=== PATIENT | female | born 1995 | race Caucasian/White ===

== ENCOUNTER 2020-09-11 06:57 | Outpatient (CLI) | payer BC, SELFPAY ==
--- NOTE | 2020-09-11 07:15 | MR_ITS ---
WS: [id number] MRI RIGHT KNEE NONCONTRAST TECHNIQUE: Axial PD, coronal PD fat sat, coronal PD, sagittal PD, and sagittal PD fat-sat images obta ined. CLINICAL INFORMATION: M25.561 - Pain in right knee COMPARISON: None. FINDINGS: Distal quadriceps and patella tendons are intact. Hypertrophic patella. High-grade ACL tear. A few re sidual ACL fibers anteriorly. Normal PCL. Evidence of prior lateral patellar dislocation with chondra l injury involving the medial patella facet. Edema involving the lateral femoral condyle with contusi on. Medial and lateral patellar retinaculum appear intact. Grade one injury involving the proximal MC L. LCL is intact. Horizontal tear involving the posterior horn lateral meniscus. Medial meniscus appears intact. MR/MR knee RT wo con* [id number] IMPRESSION: 1. High-grade ACL tear. Normal PCL. 2. Evidence of prior lateral patellar dislocation with contusion of along the lateral femoral condyle and chondral injury involving the medial patella facet. Recommend correlation for patellar instability. 3. Medial and lateral patellar retinacula appear intact. 4. Horizontal tear involving the posterior horn lateral meniscus. Medial menis cus appears intact. 5. Grade one injury involving the proximal MCL. LCL is intact.
== END 2020-09-11 06:58 | disposition home or self-care (01) ==
LOC: RADSHAW 07:01
PROVIDERS: PCP Family Medicine; Visit Provider Orthopaedic Surgery
DX: S83.511A Sprain of anterior cruciate ligament of right knee, initial encounter (principal); S83.281A Other tear of lateral meniscus, current injury, right knee, initial encounter; X58.XXXA Exposure to other specified factors, initial encounter
CPT/HCPCS: 73721

== ENCOUNTER → 2020-10-18 12:02 | Outpatient (BNVA) | payer BC, SELFPAY | PROVIDERS: PCP Family Medicine; Visit Provider Orthopaedic Surgery | DX: Z20.822 Contact with and (suspected) exposure to COVID-19 (principal) | CPT/HCPCS: 87635 ==

== ENCOUNTER → 2020-10-27 15:51 | Outpatient (BNVA) | payer BC, SELFPAY | PROVIDERS: PCP Family Medicine; Visit Provider Orthopaedic Surgery | DX: Z01.812 Encounter for preprocedural laboratory examination (principal); Z20.822 Contact with and (suspected) exposure to COVID-19 | CPT/HCPCS: 87635 ==

== ENCOUNTER 2020-11-02 09:07 | Day surgery (SDC) | payer BC, SELFPAY ==
[2020-11-01 15:59] VITALS: BMI 39.9
[2020-11-02] VITALS (11 sets, daily range): BP systolic 120–136; BP diastolic 76–99; PULSE 80–130; RESP 12–20; TEMP 36.2–36.5; O2SAT 94–99
[2020-11-02 09:34] LABS: OR HCG Qualitative Urine Negative (Negative)
--- NOTE | 2020-11-02 09:54 | ANES.PREANE2 ---
Pre-Anesthetic Assessment Pre-Anesthetic Assessment: Height/Weight: Height 1.75 m Weight 122.47 kg Temp Pulse Resp BP Pulse Ox 97.1 F L 80 18 134/94 96 11/02/20 09:25 11/02/20 09:25 11/02/20 09:25 11/02/20 09:25 11/02/20 09:25 Preop Diagnosis: Anterior cruciate ligament tear, Lateral patellar dislocation, lateral meni Proposed Procedure: Operation Date: 11/02/20 11:05 Proposed Procedures p ACL Repair and lateral meniscal repair 52710, 16130, 79849 S83.004A, S83.519A, S83.281A(Right) - Vitaliy Villalobos MD s medial Patellofemoral Ligament repair(Right) - Vitaliy Villalobos MD Familial anesthetic complications: None Was Beta Hilda taken within 24 hours: Yes Was Clonidine taken within 24 hours: N/A Last intake: Intake Last Liquid Date 11/01/20 Last Liquid Time 22:00 Last Solid Date 11/01/20 Last Solid Time 22:00 Social: Social History: No alcohol and No tobacco Exam: Pre-Anes Outpt Exam: alert, oriented x 3, clear to auscultation bilaterally and regular rate & rhythm Airway: Cervical ROM: WNL MP: 3 Dentition: Full Pulmonary: Pulmonary: Asthma (very mild, 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
[2020-11-02] MEDS: sodium chloride 0.9% 1,000 ML 30 ML IV (10:05)
[2020-11-02] MEDS: oxyCODONE 20 mg ER (12 HR) Tablet PO (10:17)
--- NOTE | 2020-11-02 10:53 | W.PM.OPSUD ---
Surgery/Procedure H&P Update DATE OF PROCEDURE: November 02, 2020 DATE H&P PERFORMED: 10/02/20 H&P UPDATE INFORMATION: I have reviewed H&P completed within last 30 days, I have examined patient prior to procedure and No changes to prior documentation PREOP DIAGNOSIS: Anterior cruciate ligament tear, Lateral patellar dislocation, lateral meni PLANNED PROCEDURE: Operation Date: 11/02/20 11:05 Proposed Procedures p ACL Repair and lateral meniscal repair 38280, 03473, 89371 S83.004A, S83.519A, S83.281A(Right) - Vitaliy Villalobos MD s medial Patellofemoral Ligament repair(Right) - Vitaliy Villalobos MD
[2020-11-02] MEDS: morphine 4 mg/mL SDV 1 mL 8 MG IM (11:40)
--- NOTE | 2020-11-02 13:58 | PM.OP ---
Operative Report Date of procedure: November 02, 2020 Pre-op Diagnosis: Anterior cruciate ligament tear, Lateral patellar dislocation, lateral meni Post-op Diagnosis: Anterior cruciate ligament reconstruction, lateral meniscal repair right knee Post-op Findings: As above Procedure Done: Right anterior cruciate ligament reconstruction Right lateral meniscal repair Pathology: none sent Surgeon: Vitaliy Villalobos Anesthesia: General Estimated blood loss (mL): 20 Tourniquet time (min): 82 Findings: The patient had an absent anterior cruciate she had a longitudinal near complete tear in the posterior third of her lateral meniscus centrally over a distance of approximately 2 cm. She had no evidence of patella patellar maltracking. She had no increased lateral translation of the patella throughout range of motion compared to the contralateral knee. Condition: stable Disposition: PACU Brief History: Kita is a 25-year-old female with a history of instability in the right knee. She describes a history of patellar dislocation. An MRI revealed complete disruption of her anterior cruciate ligament and a lateral meniscal tear. With her history of recurrent instability and pain surgical reconstruction was chosen. Our our plan was to address known pathology with anterior cruciate ligament and lateral meniscus. It was suspected that her anterior cruciate ligament with a cause of recurrent instability but if patellar laxity was noted at the time of surgery patellofemoral ligament reconstruction could be added. Procedure: The patient was taken to the operating room and given a general anesthesia. She is prepped and draped in the supine position with a tourniquet on the right thigh. The knee was infiltrated with 30 cc of 0.5% Marcaine and 4 mg of morphine. A timeout was performed. The knee was initially entered through the standard inferior medial and inferior lateral portals with the diagnostic portion of arthroscopy performed. The medial compartment is inspected and found to be free of chondromalacia or meniscal tearing. The patellofemoral compartment was inspected as well found to be healthy is free of chondromalacia. Attention was focused on the intercondylar notch. The synovium was removed revealing no remaining anterior cruciate ligament tissue. The leg was placed in a [id number] position revealing tearing of the lateral meniscus. A small longitudinal fragment was seen adherent to the anterior lateral meniscus which was removed with an incisor shaver and [employer] Werew[employer] probe. Of near complete longitudinal posterior split was identified in the posterior third of the meniscus centrally. The longitudinal tear was debrided with incisor shaver lightly to improve vascularity. The scope was then moved medially and a [employer] NovoStitch suture passer passed to the lateral portal placing a haybale stitch just adjacent to the meniscal root. A second [employer] NovoStitch was passed approximately 1 cm laterally approximating the root tear. Attention was then paid to the anterior cruciate ligament. Utilizing an incisor shaver small amount of lateral wall was resected allowing visualization of the posterior lateral intercondylar notch. A 3 cm long incision was then made over the medial tibial plateau and dissection carried down with blunt scissors identifying a well-defined semi-tendinosis and gracilis graft. The 2 grafts were freed off their insertion on the tibia and fixed with a [employer] Ultrabraid suture. Using the closed ended tendon stripper to grafts were harvested. On the back table with her freed of muscle and the free ends fixed with the Ultrabraid suture. They were pretensioned on the back table. They were measured and fit snugly through a 10 mm tunnel with a triple construct of the semitendinosis and doubled the chrysalis. Using the anatomic femoral footprint guide, a guidepin was driven up from the 10:30 position exiting superior and lateral femur. Tunnel depth was measured at 47 mm. The Endobutton reamer was passed over the guide pin confirming the length of tunnel. A 10 mm reamer was then passed to a depth of 37 mm. The [employer] ProTrac guide was used to pass a guidepin from the medial tibia exiting the tibial footprint. . A 11 mm reamer was passed over the guidepin exiting the tibial footprint of the anterior cruciate ligament. On the back table, the 2 grafts were doubled through a 20 mm closed loop Endobutton and the semitendinosis smaller and tied back to the loop creating a tripled construct of the larger graft.. This allowed 27 mm of tendon to be buried in the femur and allowed more than sufficient room to flip the Endobutton. The grafts were shuttled from the tibia through the femur using an ultra braid suture. The Endobutton was felt to flip on the lateral cortex and secured with tension on the sutures to the tibia. A [employer] Biosure Sync sleeve was placed and was secured with a 11 x 25 mm Biosure PK screw. The knee and medial wounds were irrigated with saline. The sartorius fascia was closed with 2-0 Vicryl. Deep tissues were closed with 2-0 Vicryl. The tibial wound was closed with a running 3-0 Prolene. Portals were closed with 3-0 Prolene. Steri-Strips were applied over the tibial incision. Sterile dressings were applied. The patient was placed in a hinged knee brace locked in full extension. They were taken to recovery room in stable condition.
--- NOTE | 2020-11-02 14:03 | ANE.PACU2 ---
Inpatient post-anesthesia follow up: Airway intact: Yes Vital signs: Temperature 97.1 F Pulse Rate 80 Respiratory Rate 18 Blood Pressure 134/94 Pulse Oximetry 96 Oxygen Delivery Me thod Room Air Oxygen Flow Rate Fraction of Inspir ed Oxygen Hydration adequate: Yes Nausea and vomiting: No Pain level: 1 Mental status: Baseline
--- NOTE | 2020-11-06 07:01 | W.PM.OPSFHP ---
Same Day Surgery H&P Indication for Procedure/HPI DATE OF PROCEDURE: November 06, 2020 CHIEF COMPLAINT/INDICATIONFOR SURGICAL PROCEDURE: Anterior cruciate ligament tear, lateral meniscal tear right knee. History of patellar dislocation and equivical instability exam. Here for anterior cruciate ligament reconstruction, medial meniscectomy versus repair, evaluation under anesthesia and possible medial patellofemoral ligament reconstruction PREOP DIAGNOSIS: Anterior cruciate ligament tear, Lateral patellar dislocation, lateral meni PLANNED PROCEDRUE: Operation Date: 11/02/20 11:05 Proposed Procedures p ACL Repair and lateral meniscal repair 90346, 58970, 08931 S83.004A, S83.519A, S83.281A(Right) - Vitaliy Villalobos MD s medial Patellofemoral Ligament repair(Right) - Vitaliy Villalobos MD Medications/Allergies* Home Medications Medication Instructions Recorded Confirmed Type buspirone 10 mg tablet 10 mg PO BID 08/23/20 11/02/20 History famotidine 40 mg tablet 40 mg PO DAILY 08/23/20 11/02/20 History metoprolol succinate 100 mg 100 mg PO DAILY 08/23/20 11/02/20 History tablet,extended release 24 hr multivitamin 1 tab PO DAILY 08/23/20 11/02/20 History pantoprazole 40 mg tablet,delayed 40 mg PO DAILY 08/23/20 11/02/20 History release venlafaxine 150 mg 150 mg PO DAILY 08/23/20 11/02/20 History capsule,extended release 24 hr Depo-Provera See Rx Instructions .ROUTE .COMPLEX 11/01/20 11/01/20 History Allergies/Adverse Reactions Allergy/AdvReac Type Severity Reaction Status Date / Time acetaminophen [From Tylenol] Allergy Severe ALGY-Anaphy Verified 10/02/20 13:13 laxis naproxen Allergy Severe ALGY-Anaphy Verified 10/02/20 13:13 laxis Pertinent History/Comorbid Conditions* Social History Smoking and tobacco status: never smoked Alcohol intake: never Pertinent Exam Findings alert, oriented x 3, clear to auscultation bilaterally, regular rate & rhythm and operative site marked Recommendations Surgery/Procedure today Coding Level of Care Code 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
== END 2020-11-02 15:20 | disposition home or self-care (01) ==
PROVIDERS: Anesthesiology; PCP Family Medicine; Visit Provider Orthopaedic Surgery
PROC: (CPT 27407; principal; 2020-11-02 11:05)
PROC: (CPT 27427; 2020-11-02 11:05)
DX: S83.511A Sprain of anterior cruciate ligament of right knee, initial encounter (principal); S83.014A Lateral dislocation of right patella, initial encounter; X58.XXXA Exposure to other specified factors, initial encounter; I10 Essential (primary) hypertension; K21.9 Gastro-esophageal reflux disease without esophagitis; E66.01 Morbid (severe) obesity due to excess calories; Z68.39 Body mass index [BMI] 39.0-39.9, adult; J45.909 Unspecified asthma, uncomplicated
CPT/HCPCS: 29881; 29888; 84703; C1713; J0330; J0690; J1100; J1580; J2270; J2405; J2704; J3010; J3490; J7030; L1832

== ENCOUNTER 2020-11-07 06:00 | Outpatient (RCR) | payer BC, SELFPAY | END 2020-11-08 23:59 | disposition home or self-care (01) | LOC: SPT 06:00 | PROVIDERS: PCP Family Medicine; Referring Provider Orthopaedic Surgery; Visit Provider Orthopaedic Surgery | DX: Z47.89 Encounter for other orthopedic aftercare (principal) | CPT/HCPCS: 97161 ==

== ENCOUNTER 2020-11-09 06:00 | Outpatient (RCR) | payer BC, SELFPAY | END 2020-12-09 23:59 | disposition home or self-care (01) | LOC: SPT 06:00 | PROVIDERS: PCP Family Medicine; Referring Provider Orthopaedic Surgery; Visit Provider Orthopaedic Surgery | DX: M25.561 Pain in right knee (principal); R26.89 Other abnormalities of gait and mobility; M25.661 Stiffness of right knee, not elsewhere classified | CPT/HCPCS: 97110 ==

== ENCOUNTER 2020-12-10 06:00 | Outpatient (RCR) | payer BC, SELFPAY | END 2021-01-09 23:59 | disposition home or self-care (01) | LOC: SPT 06:00 | PROVIDERS: PCP Family Medicine; Referring Provider Orthopaedic Surgery; Visit Provider Orthopaedic Surgery | DX: Z47.89 Encounter for other orthopedic aftercare (principal) | CPT/HCPCS: 97110 ==

== ENCOUNTER 2021-08-21 11:50 | Outpatient (CLI) | payer OTHER, SELFPAY ==
--- NOTE | 2021-08-21 12:15 | US_ITS ---
WS: [id number] RIGHT UPPER QUADRANT ULTRASOUND HISTORY: right upper quadrant pain and nausea COMPARISON: None available. Liver: 19.2 cm in length. Liver is moderately enlarged. Coarsened echotexture low-attenuation from he patic steatosis. No mass or bile duct dilatation. Portal Vein: Normal hepatopetal flow with monophasic waveform. Gallbladder: Normally distended gallbladder with no stones or wall thickening. CBD: 0.5 cm Pancreas: Normal size and echogenicity. Right kidney: 12.2 cm in length. Normal size and echogenicity. No hydronephrosis or mass. Aorta and IVC: Unremarkable abdominal aorta and IVC. No ascites. US/US gall bladder [id number] IMPRESSION: 1. Normal gallbladder. 2. Moderate hepatomegaly and hepatic steatosis.
== END 2021-08-21 11:51 | disposition home or self-care (01) ==
PROVIDERS: Visit Provider Family Medicine
DX: R10.11 Right upper quadrant pain (principal); R11.0 Nausea; R16.0 Hepatomegaly, not elsewhere classified; K76.0 Fatty (change of) liver, not elsewhere classified
CPT/HCPCS: 76705

== ENCOUNTER → 2022-06-12 14:39 | Outpatient (BNVA) | payer OTHER, SELFPAY | PROVIDERS: PCP Family Medicine; Visit Provider Nurse Practitioner Family | DX: M25.561 Pain in right knee (principal) | CPT/HCPCS: 73562 ==

== ENCOUNTER → 2022-06-13 14:30 | Outpatient (BNVA) | payer OTHER, SELFPAY | PROVIDERS: PCP Family Medicine; Visit Provider Obstetrics & Gynecology | DX: E66.9 Obesity, unspecified (principal) | CPT/HCPCS: 83036; 83525; 84443 ==

== ENCOUNTER → 2022-07-01 12:41 | Outpatient (BNVA) | payer OTHER, SELFPAY | PROVIDERS: PCP Family Medicine; Visit Provider Obstetrics & Gynecology | DX: N93.9 Abnormal uterine and vaginal bleeding, unspecified (principal) | CPT/HCPCS: 76830 ==

== ENCOUNTER 2022-09-17 05:54 | Day surgery (SDC) | payer OTHER, SELFPAY ==
[2022-09-16 15:30] VITALS: BMI 36.1
[2022-09-17] VITALS (12 sets, daily range): BP systolic 108–146; BP diastolic 82–99; PULSE 79–100; RESP 11–18; TEMP 36.3–36.9; O2SAT 92–99
[2022-09-17] MEDS: phenazopyridine 100 mg Tablet 200 MG PO (06:30)
[2022-09-17] MEDS: gabapentin 300 mg Capsule PO (06:30)
[2022-09-17] MEDS: scopolamine 1.5 Patch 1 PATCH TRANSDERMA (06:30)
[2022-09-17] MEDS: sodium chloride 0.9% 1,000 ML 30 ML IV (06:35)
[2022-09-17] MEDS: acetaminophen 1,000 MG/100 ML PIGGYBACK 400 MG IV (06:35)
[2022-09-17 06:46] LABS: Glucose Point of Care 93 mg/dL (70-110)
[2022-09-17 06:47] LABS: OR HCG Qualitative Urine Negative (Negative)
[2022-09-17] MEDS: ceFAZolin 2,000 MG in sodium chloride 0.9% (plus) 50 ML 100 MG IV (07:03)
--- NOTE | 2022-09-17 07:06 | W.PM.OPSUD ---
Surgery/Procedure H&P Update DATE OF PROCEDURE: September 17, 2022 DATE H&P PERFORMED: 09/12/22 H&P UPDATE INFORMATION: I have reviewed H&P completed within last 30 days, I have examined patient prior to procedure and No changes to prior documentation PREOP DIAGNOSIS: laparoscopic bilateral salpingectomy PLANNED PROCEDURE: Operation Date: 09/17/22 07:00 Proposed Procedures p Laparoscopic bilateral salpingectomy 74099,Z30.2(Bilateral) - Yary Gordon MD Related Problem List Diagnoses (1) Dysfunctional uterine bleeding:
--- NOTE | 2022-09-17 07:40 | ANES.PREANE2 ---
Pre-Anesthetic Assessment Height/Weight: Height 1.75 m Weight 111.13 kg Temp Pulse Resp BP Pulse Ox O2 Del Method 97.6 F 89 18 124/87 99 Room Air 09/17/22 06:21 09/17/22 06:21 09/17/22 06:21 09/17/22 06:21 09/17/22 06:21 09/17/22 06:21 Preop Diagnosis: laparoscopic bilateral salpingectomy Operation Date: 09/17/22 07:00 Proposed Procedures p Laparoscopic bilateral salpingectomy 87150,Z30.2(Bilateral) - Yary Gordon MD Familial anesthetic complications: none Was Beta Hilda taken within 24 hours: Yes Was Clonidine taken within 24 hours: N/A Last intake: Intake Last Liquid Date 09/16/22 Last Liquid Time 23:45 Last Solid Date 09/16/22 Last Solid Time 21:00 Social No alcohol and No tobacco Exam alert, oriented x 3, clear to auscultation bilaterally and regular rate & rhythm Airway Submandibular: within normal limits Cervical ROM: within normal limits Mallampati: Class II Dentition: full GI Gastroesophageal Reflux Disease Metabolic Morbid Obesity Neuropsych Anxiety and Depression Anesthetic Plan ASA status: 3 Anesthesia: General Medications/Allergies Home Medications Medication Instructions Recorded Confirmed Last Taken Type multivitamin 1 tab PO DAILY 08/23/20 09/17/22 09/15/22 History medroxyprogesterone 150 mg/mL See Rx Instructions .Route .COMPLEX 11/01/20 09/17/22 07/08/22 History intramuscular syringe (Depo-Provera) loratadine 10 mg tablet 10 mg PO DAILY 02/21/22 09/17/22 09/15/22 History metoprolol succinate 100 mg 100 mg PO DAILY #90 tabs 07/15/22 09/17/22 09/16/22 20:00 Rx tablet,extended release 24 hr pantoprazole 40 mg tablet,delayed 40 mg PO DAILY #90 tabs 07/22/22 09/17/22 09/16/22 Rx release (Protonix) metformin 500 mg tablet,extended 500 mg PO BID 09/16/22 09/17/22 09/16/22 09:00 History release 24hr venlafaxine 150 mg 300 mg PO DAILY #60 caps 09/16/22 09/17/22 09/16/22 Rx capsule,extended release 24 hr (Effexor XR) bupropion HCl 150 mg 24 hr tablet, 150 mg PO QAM 09/17/22 09/17/22 09/16/22 History extended release Allergies Allergy/AdvReac Type Severity Reaction Status Date / Time ibuprofen AdvReac Severe cough, Verified 09/16/22 15:48 sneezing, throat swelling hydroxyzine AdvReac Intermediate ADR-Hallucinating Verified 09/16/22 15:48 & vivid dreams. Current Medications Generic Name Dose Route Start Last Admin Trade Name Freq PRN Reason Stop Dose Admin Sodium Chloride 1,000 mls @ 30 mls/hr 09/17/22 06:15 09/17/22 06:35 Sodium Chloride 0.9% IV 09/18/22 06:14 30 mls/hr .Q24H ALANIS Administration PFSH Anesthesia Medical History (Updated 09/17/22 @ 07:07 by Yary Gordon MD) Anxiety and depression Anxiety disorder Dysfunctional uterine bleeding Dyshidrosis GERD (gastroesophageal reflux disease) Hypertension Irritable bowel syndrome Myalgia Obesity (BMI 35.0-39.9 without comorbidity) Polycystic bilateral ovaries Psychiatric care Surgical History (Updated 09/17/22 @ 07:07 by Yary Gordon MD) History of repair of ACL Family History Denies family history of Colon cancer Ovarian cancer Diabetes Heart disease Hypercholesteremia Breast cancer Hypertension Uterine cancer Thyroid disease Stroke Social History Substance/Drug Use: never Data Anesthesia Cardiac Studies: No Data to Display
--- NOTE | 2022-09-17 08:24 | PM.OP ---
Operative Report Date of procedure: September 17, 2022 Pre-op diagnosis: Preop Diagnosis laparoscopic bilateral salpingectomy Post-op diagnosis: same Post-op findings: 7 week sized uterus. Normal appearing tubes and ovaries. Small exophytic fibroid at fundus Procedure done: laparoscopic bilateral salpingectomy Specimens removed/disposition: bilateral fallopian tubes to pathology Surgeon: Yary Gordon Anesthesia: General Estimated blood loss (mL): 2 IV fluids (mL): 600 Urine output (mL): 125 Complications: none Condition: stable Disposition: PACU Procedure: The patient was taken to the operating room where general anesthesia was administered and found to be adequate. She was prepped and draped in the normal sterile fashion in the dorsal lithotomy position in [facility]. A Hernandez catheter was placed. A weighted speculum was placed into the vagina and the anterior lip of the cervix grasped with a single-tooth tenaculum. A [employer]Ok[employer] uterine manipulator was placed. The gloves were changed and attention was turned to the laparoscopic portion of the case. A 5 mm supraumbilical incision was made. The 5 mm trocar was placed using the easy view trocar. Intra-abdominal placement was confirmed and CO2 gas was used to insufflate the abdomen. Using direct visualization and illumination of the abdominal wall, two 5 mm incisions were made low and lateral. One on the left and one on the right. The 5mm trochars were then placed under direct visualization. Using the uterine manipulator and the grasper, the fallopian tubes were identified. Using the laparoscopic cautery, the fallopian tube was clamped cauterized and cut. First on the right, then on the left. There was excellent hemostasis post removal of the bilateral tubes. Pictures were taken. All instruments were removed. The abdomen was desufflated. The incisions were closed with 4-0 Vicryl. 10 ml of 1/2% bupivicaine was used around the incisions. The patient tolerated the procedure well. Sponge lap and needle counts were correct x3. She was taken to the recovery room in stable condition.
--- NOTE | 2022-09-17 08:30 | PM.DCS ---
Discharge Providers Date of Admission: 09/17/22 Date of Discharge: September 17, 2022 Attending Provider at Discharge: Yary Gordon MD Primary Care Provider: Glenna Taveras MD Diagnoses at Discharge Discharge Diagnosis (1) Dysfunctional uterine bleeding: Status: Acute Reason for Visit Reason for Visit: Z30.2 Hospital Course Hospital Course The patient was admitted for surgery. She did well postoperatively and was ready for discharge Physical Exam Urinary Catheter Management: Hernandez: Cath Placed During This Visit: yes, but has since been removed by the nurse Urinary Catheter Date of Insertion: 09/17/22 Urinary Catheter Time of Insertion: 07:38 Date Urinary Catheter Removed: 09/17/22 Time Urinary Catheter Discontinued: 08:10 Discharge Data Studies Completed and Pending Pending at discharge Category Date Time Status Urine Culture Routine Lab 09/17/22 06:05 Uncollected Pathology: Surgical [PTH] Routine Pth 09/17/22 08:07 Ordered Laboratory Results POC Glucose 93 mg/dL (70-110) 09/17/22 06:41 Urine HCG, Qual Negative (Negative) 09/17/22 06:20 Vitals Last Vital Signs Temp 97.4 F L 09/17/22 08:17 Pulse 84 09/17/22 08:25 Resp 12 09/17/22 08:25 BP 108/92 09/17/22 08:25 Pulse Ox 98 09/17/22 08:25 O2 Del Method Simple Mask 09/17/22 08:25 O2 Flow Rate 8 09/17/22 08:25 Discharge Plan Discharge Patient Disposition: Home Condition: Stable Prescriptions: New hydrocodone-acetaminophen 5-325 mg tablet 1 tab PO Q4H PRN (Reason: pain) Qty: 30 0RF Continued multivitamin Tablet 1 tab PO DAILY loratadine 10 mg tablet 10 mg PO DAILY venlafaxine [Effexor XR] 150 mg capsule,extended release 24hr 300 mg PO DAILY Qty: 60 2RF metoprolol succinate 100 mg tablet extended release 24 hr 100 mg PO DAILY Qty: 90 1RF pantoprazole [Protonix] 40 mg tablet,delayed release (DR/EC) 40 mg PO DAILY Qty: 90 1RF medroxyprogesterone [Depo-Provera] 150 mg/mL Syringe See Rx Instructions .ROUTE .COMPLEX Rx Instructions: 150 mg intramuscularly q 3 months metformin 500 mg tablet extended release 24hr 500 mg PO BID Rx Instructions: Start with 500 mg daily and then increase to 1000 mg daily after 1 month. bupropion HCl 150 mg Tablet Extended Release 24 Hr 150 mg PO QAM Discharge Orders: Discharge Order (Routine); Ordered 09/17/22 Ordered By: Yary Gordon Discharge Attestations Time Spent in Discharge Care*: less than 30 min Quality Metrics Clinical Quality Measures [ No reported AMI, CVA or VTE this stay] Coding Level of Care Code Acute Code for Chg Fwd Diagnoses Dysfunctional uterine bleeding N93.8
--- NOTE | 2022-09-17 08:36 | SUR.PHASEI ---
0836-Patient slow to wake up. Pt opened eyes and oral airway was removed, pt back to sleep, pt is arousable
--- NOTE | 2022-09-17 14:47 | ANE.PACU2 ---
Inpatient post-anesthesia follow up: Airway intact: Yes Vital signs: Temperature 97.5 F Pulse Rate 84 Respiratory Rate 16 Blood Pressure 116/89 Pulse Oximetry 95 Oxygen Delivery Me thod Room Air Oxygen Flow Rate 8 Fraction of Inspir ed Oxygen Hydration adequate: Yes Nausea and vomiting: No Pain level: 3 Mental status: Baseline
== END 2022-09-17 09:25 | disposition home or self-care (01) ==
PROVIDERS: PCP Family Medicine; Visit Provider Obstetrics & Gynecology
PROC: (CPT 58661; principal; 2022-09-17 07:00)
DX: Z30.2 Encounter for sterilization (principal); K21.9 Gastro-esophageal reflux disease without esophagitis; E66.01 Morbid (severe) obesity due to excess calories; Z68.36 Body mass index [BMI] 36.0-36.9, adult; F32.A Depression, unspecified; F41.9 Anxiety disorder, unspecified
CPT/HCPCS: 58661; 36416; 81025; 82962; 84703; 87086; 88302; J0131; J0690; J1100; J1170; J1200; J2250; J2405; J2704; J2710; J3010; J3490; J7030

== ENCOUNTER 2022-12-23 21:35 | Emergency (ER) | payer SELFPAY ==
[2022-12-23 21:40] VITALS: BP 126/85; PULSE 123; RESP 16; TEMP 38.2; O2SAT 97; BMI 33.0
--- NOTE | 2022-12-23 21:48 | ED_ITS ---
HPI - Abdominal Pain General: Chief Complaint: Abdominal Pain Stated Complaint: Shakes\N\V\Headache\ABD Pain Time Seen by Provider: 12/23/22 21:46 History of Present Illness: 27-year-old female comes in today for complaints of headache, lower abdominal pain, and chills. Patient appears nontoxic. Patient appears in mild pain. Patient had a tubal ligation about 6 months ago. Patient moves all extremities well. Patient reports some increased urgency and dysuria with suspected urinary tract infection. Associated Symptoms: Reports chills and nausea Review of Systems General: Reports: 10 or more systems reviewed and unremarkable except in HPI and below Const: Reports: chills ENMT: Denies: throat pain Card: Denies: chest pain Resp: Denies: dyspnea, productive cough or non-productive cough GI: Reports: nausea : Reports: urinary frequency and urinary urgency Musc: Denies: back pain Skin/Breast: Denies: rash Neuro: Reports: headache(s) PFSH ED PFSH: Medical History Anxiety and depression Anxiety disorder Chronic cholecystitis Dislocation of patella, right, closed Dysfunctional uterine bleeding Dyshidrosis GERD (gastroesophageal reflux disease) Hypertension Irritable bowel syndrome Myalgia Obesity (BMI 35.0-39.9 without comorbidity) Polycystic bilateral ovaries Psychiatric care Surgical History History of repair of ACL Family History Denies family history of Colon cancer Ovarian cancer Diabetes Heart disease Hypercholesteremia Breast cancer Hypertension Uterine cancer Thyroid disease Stroke Social History Substance/Drug Use: never Physical Exam Const: COMMON NORMALS: alert HENMT: COMMON NORMALS: normocephalic HEAD & SCALP: normocephalic MOUTH: Normal oral and palatal mucosa present Neck/C-Spine: COMMON NORMALS: full ROM Chest: COMMONS NORMALS: normal inspection of the chest Cardio: COMMON NORMALS: regular rate and regular rhythm RATE: regular rate RHYTHM: regular rhythm GI: COMMON NORMALS: Soft to palpation PALPATION: Yes Soft to palpation Extremity: COMMON NORMALS: no pedal edema Neuro: SENSORIUM/ORIENTATION: Yes alert Skin: COMMON NORMALS: turgor normal GENERAL SKIN EXAM: turgor normal Course Vital Signs: Vital signs: Vital Signs Temperature 100.7 F H 12/23/22 21:40 Pulse Rate 109 H 12/23/22 22:30 Respiratory Rate 16 12/23/22 21:40 Blood Pressure 128/95 12/23/22 22:30 Pulse Oximetry 97 12/23/22 22:30 Oxygen Delivery Me thod Room Air 12/23/22 22:30 MDM - Abdominal Pain Medical Decision Making 27-year-old female comes in today with complaints of chills, nausea, and lower abdominal discomfort. On exam patient's abdomen soft with some tenderness in suprapubic area. No CVA tenderness. Lungs clear to auscultation. Vital signs are normal except for some mild elevation in pulse and a temperature of 100.7. Differential diagnosis includes but not limited to urinary tract infection, appendicitis, gastroenteritis, colitis, gallbladder disease, viral syndrome. CBC showed a white blood cell count of 17.9 thousand. CMP showed a creatinine 0.8 and potassium 3.3. Urinalysis had a large amount of white blood cells, too numerous to count, and positive nitrates. Patient be treated for a urinary tract infection. No other signs of severe illness or injuries are noted. Patient was given 1 g Rocephin in the ER and 1 L of IV fluids. Patient be continued on cephalexin 500 mg 3 times a day for the next 7 days. Patient was recommended follow-up with primary care in 1 week for recheck. Patient was recommended return to the ER for new concerns or worsening symptoms. Lab Data 12/23/22 22:15 12/23/22 22:15 Labs/Radiology: Laboratory Results WBC 17.9 10^3/uL (4.0-10.0) H 12/23/22 22:15 RBC 4.53 10^6/uL (4.1-5.3) 12/23/22 22:15 Hgb 13.4 g/dL (11.5-15.3) 12/23/22 22:15 Hct 40.1 % (37.0-47.0) 12/23/22 22:15 MCV 88.5 fl (81-99) 12/23/22 22:15 MCH 29.6 pg (28.0-34.0) 12/23/22 22:15 MCHC 33.4 g/dL (30.0-36.0) 12/23/22 22:15 RDW 12.5 % (12.1-15.1) 12/23/22 22:15 Plt Count 344 10^3/cmm (130-400) 12/23/22 22:15 MPV 9.2 fL (7.4-10.4) 12/23/22 22:15 Neut % (Auto) 92.7 % 12/23/22 22:15 Lymph % (Auto) 2.8 % 12/23/22 22:15 [place] % (Auto) 3.6 % 12/23/22 22:15 Eos % (Auto) 0.2 % 12/23/22 22:15 Baso % (Auto) 0.3 % 12/23/22 22:15 Neut # (Auto) 16.59 10^3/uL (1.8-7.7) H 12/23/22 22:15 Lymph # (Auto) 0.5 10^3/uL (0.8-4.8) L 12/23/22 22:15 [place] # (Auto) 0.6 10^3/uL (0.2-0.9) 12/23/22 22:15 Eos # (Auto) 0.0 10^3/uL (0.0-0.8) 12/23/22 22:15 Baso # (Auto) 0.1 10^3/uL (0.0-0.1) 12/23/22 22:15 Nucleated RBC % (auto) 0 % 12/23/22 22:15 Nucleated RBCs # 0.0 /100WBC 12/23/22 22:15 Sodium 137 mmol/L (136-145) 12/23/22 22:15 Potassium 3.3 mmol/L (3.5-5.1) L 12/23/22 22:15 Chloride 99 mmol/L (98-107) 12/23/22 22:15 Carbon Dioxide 26 mmol/L (22-29) 12/23/22 22:15 Anion Gap 15.3 (5-19) 12/23/22 22:15 BUN 10 mg/dL (6-20) 12/23/22 22:15 Creatinine 0.8 mg/dL (0.5-0.9) 12/23/22 22:15 GFR Calculation 86.0 mL/min (90-130) L 12/23/22 22:15 Glucose 101 mg/dL (65-115) 12/23/22 22:15 Calculated Osmolality 283 mOsm/kg (285-295) L 12/23/22 22:15 Calcium 9.0 mg/dL (8.5-10.5) 12/23/22 22:15 Total Bilirubin 0.9 mg/dL (0.15-1.2) 12/23/22 22:15 AST 15 U/L (0-32) 12/23/22 22:15 ALT 20 U/L (0-33) 12/23/22 22:15 Alkaline Phosphatase 74 U/L (35-105) 12/23/22 22:15 Total Protein 7.7 g/dL (6.6-8.7) 12/23/22 22:15 Albumin 4.4 g/dL (3.5-5.2) 12/23/22 22:15 Globulin 3.3 g/dL (1.3-4.6) 12/23/22 22:15 Lipase 15 U/L (13-60) 12/23/22 22:15 HCG, Qual Negative (Negative) 12/23/22 22:15 Urine Color Yellow (Yellow) 12/23/22 22:49 Urine Appearance Sl hazy (CLEAR) A 12/23/22 22:49 Urine pH 5 (5-7) 12/23/22 22:49 Ur Specific [place] 1.010 (1.005-1.030) 12/23/22 22:49 Urine Protein 1+ (Negative) H 12/23/22 22:49 Urine Glucose (UA) Norm (Normal) 12/23/22 22:49 Urine Ketones Negative (Negative) 12/23/22 22:49 Urine Blood 3+ (Negative) H 12/23/22 22:49 Urine Nitrate Positive (Negative) H 12/23/22 22:49 Urine Bilirubin Neg (Negative) 12/23/22 22:49 Urine Urobilinogen Norm mg/dL (Negative) 12/23/22 22:49 Ur Leukocyte Esterase 2+ (Negative) H 12/23/22 22:49 Urine RBC 15-25 /hpf (0-2) H 12/23/22 22:49 Urine WBC Too numerous to cnt /hpf (0-5) H 12/23/22 22:49 Ur Squamous Epith Cells 0-4 /hpf (0-5) H 12/23/22 22:49 Amorphous Sediment Not Reportable 12/23/22 22:49 Urine Bacteria 2+ /hpf (NONE) H 12/23/22 22:49 Discharge Plan Discharge Patient Disposition: Home Clinical Impression: UTI (urinary tract infection) due to Enterococcus Condition: Stable Prescriptions: New cephalexin 500 mg capsule 500 mg PO Q8H 7 Days Qty: 21 0RF No Action multivitamin Tablet 1 tab PO DAILY loratadine 10 mg tablet 10 mg PO DAILY pantoprazole [Protonix] 40 mg tablet,delayed release (DR/EC) 40 mg PO DAILY Qty: 90 1RF bupropion HCl 150 mg tablet extended release 24 hr 150 mg PO QAM Qty: 30 2RF metformin 500 mg tablet extended release 24hr 500 mg PO BID Qty: 60 2RF metoprolol succinate 100 mg tablet extended release 24 hr 100 mg PO DAILY Qty: 90 1RF venlafaxine [Effexor XR] 150 mg capsule,extended release 24hr 300 mg PO DAILY Qty: 60 2RF medroxyprogesterone [Depo-Provera] 150 mg/mL Syringe See Rx Instructions .ROUTE .COMPLEX Rx Instructions: 150 mg intramuscularly q 3 months hydrocodone-acetaminophen 5-325 mg tablet 1 tab PO Q4H PRN (Reason: pain) Qty: 30 0RF Discharge Orders: Discharge ED (Routine); Ordered 12/23/22 Ordered By: Walter Anthony Referrals: Glenna Taveras MD [Primary Care Provider] - Discharge Diet: Usual diet Discharge Activity: Increase activity as tolerated Patient Instructions: Urinary Tract Infection in Women (ED) Activity Restrictions/Additional Instructions: Home and rest. Drink plenty of water and fluids. Use acetaminophen and/or ibuprofen as needed for pain and fever. Take antibiotic cephalexin 500 mg 3 times a day for the next 7 days. Follow-up with primary care in 1 week for recheck of urine. Return to ED for new concerns. Coding Level of Care Code ED [employer] L[employer] for [facility] Lin
[2022-12-23 22:26] LABS: Basophils # 0.1 10^3/uL (0.0-0.1); Basophils % 0.3 %; Eosinophils % 0.2 %; Hematocrit 40.1 % (37.0-47.0); Hemoglobin 13.4 g/dL (11.5-15.3); Lymphocytes # 0.5 10^3/uL (0.8-4.8); Lymphocytes % 2.8 %; Mean Corpuscular HGB Conc 33.4 g/dL (30.0-36.0); Mean Corpuscular Hemoglobin 29.6 pg (28.0-34.0); Mean Corpuscular Volume 88.5 fl (81-99); Mean Platelet Volume 9.2 fL (7.4-10.4); Monocytes # 0.6 10^3/uL (0.2-0.9); Monocytes % 3.6 %; Neutrophils # 16.59 10^3/uL (1.8-7.7); Neutrophils % 92.7 %; Nucleated Red Blood Cells % 0 %; Platelet Count 344 10^3/cmm (130-400); Red Blood Count 4.53 10^6/uL (4.1-5.3); Red Cell Distribution Width 12.5 % (12.1-15.1); White Blood Count 17.9 10^3/uL (4.0-10.0)
[2022-12-23 22:30] VITALS: BP 128/95; PULSE 109; O2SAT 97
[2022-12-23] MEDS: acetaminophen 500 mg Tablet 1000 MG PO (22:34)
[2022-12-23] MEDS: sodium chloride 0.9% 1,000 ML 999 ML IV (22:45)
[2022-12-23 22:47] LABS: Alanine Aminotransferase 20 U/L (0-33); Albumin Level 4.4 g/dL (3.5-5.2); Alkaline Phosphatase 74 U/L (35-105); Anion Gap 15.3 (5-19); Aspartate Amino Transferase 15 U/L (0-32); Blood Urea Nitrogen 10 mg/dL (6-20); Carbon Dioxide 26 mmol/L (22-29); Chloride 99 mmol/L (98-107); Globulin 3.3 g/dL (1.3-4.6); Glucose 101 mg/dL (65-115); Lipase 15 U/L (13-60); Osmolality Calculated 283 mOsm/kg (285-295); Potassium 3.3 mmol/L (3.5-5.1); Sodium 137 mmol/L (136-145); Total Bilirubin 0.9 mg/dL (0.15-1.2); Total Protein 7.7 g/dL (6.6-8.7)
[2022-12-23 22:50] LABS: HCG, Serum Qual Negative (Negative)
[2022-12-23 23:17] LABS: Add Urine Microscopic? YES; Bilirubin Urine Neg (Negative); Blood Urine 3+ (Negative); Glucose Urine UA Norm (Normal); Ketones Urine Negative (Negative); Leukocyte Esterase Urine 2+ (Negative); Nitrate Urine Positive (Negative); Protein Urine 1+ (Negative); Urine Appearance SL Hazy (CLEAR); Urine Color Yellow (Yellow); Urobilinogen Urine Norm (Negative); pH Urine 5 (5-7)
[2022-12-23 23:18] LABS: Add Urine Culture? Yes; Bacteria Urine 2+ /hpf; RBC Urine 15-25 /hpf (0-2); Squamous Epithelial Cell Urine 0-4 /hpf (0-5); WBC Urine TOO NUMEROUS TO CNT /hpf (0-5)
[2022-12-24] MEDS: cefTRIAXone 1,000 MG in sodium chloride 0.9% (plus) 50 ML 100 MG IV (00:06)
[2022-12-24 00:34] VITALS: BP 116/78; PULSE 110; RESP 22; O2SAT 97
== END 2022-12-24 00:36 | disposition home or self-care (01) ==
PROVIDERS: Emergency Provider Nurse Practitioner Family; PCP Family Medicine
DX: N39.0 Urinary tract infection, site not specified (principal); B95.2 Enterococcus as the cause of diseases classified elsewhere; Z79.84 Long term (current) use of oral hypoglycemic drugs; I10 Essential (primary) hypertension
CPT/HCPCS: 80053; 81001; 83690; 84703; 85025; 87077; 87086; 87186; 96365; 96366; 99284; J0696; J7030